=== PATIENT | male | born 1980 | race Caucasian/White ===

== ENCOUNTER 2021-04-09 10:15 | Emergency (ER) | payer SELFPAY ==
[2021-04-09] MEDS ORDERED: Sodium Chloride 0.9% 1,000 ML ONE ×2 (10:30→12:05)
[2021-04-09] MEDS ORDERED: Ondansetron PF 4 MG/2 ML Vial ONE (10:30)
[2021-04-09] MEDS ORDERED: Lorazepam 2 MG/ML VIAL ONE ×2 (10:44→12:04)
[2021-04-09 10:58] LABS: ALT (SGPT) 51 U/L (8-55); AST (SGOT) 104 U/L (5-34); Acetaminophen Less than 6.0 mcg/mL (10.0-30.0); Albumin 4.8 g/dL (3.5-5.0); Alcohol 84 mg/dL (Less than 10); Alkaline Phosphatase 114 U/L (40-110); Anion Gap 23 mmol/L (10-20); BUN (Urea Nitrogen) 13 mg/dL (8.9-20.6); Bilirubin, Total 2.9 mg/dL (0.2-1.2); Calc. Creatinine Clearance 0 mL/min (70-130); Carbon Dioxide 24 mmol/L (22-29); Chloride 94 mmol/L (98-107); Globulin 3.1 g/dL (2.4-3.5); Glucose 102 mg/dL (70-105); Lipase 18 U/L (8-78); Magnesium 1.3 mg/dL (1.6-2.6); Potassium 3.2 mmol/L (3.5-5.1); Protein, Total 7.9 g/dL (6.0-8.3); Salicylate 8.1 mg/dL (15.0-30.0); Sodium 138 mmol/L (136-145)
[2021-04-09 11:00] LABS: #Basophils 0.1 thou/uL (0.0-0.2); #Lymphocytes 1.3 thou/uL (1.20-3.40); #Monocytes 0.5 thou/uL (0.11-0.59); #Neutrophils 5.7 thou/uL (1.40-6.50); %Basophils 0.9 % (0.0-1.0); %Eosinophils 0.2 % (0.0-10.0); %Lymphocytes 17.6 % (21.0-51.0); %Monocytes 6.6 % (0.0-10.0); %Neutrophils 74.8 % (42.0-75.0); Hemoglobin 15.2 g/dL (14.0-18.0); Mean Corpuscular HGB CONC 32.8 g/dL (32.0-36.0); Mean Corpuscular Hemoglobin 31.3 pg (27.0-31.0); Mean Corpuscular Volume 95.5 fL (78.0-98.0); Mean Platelet Volume 9.4 fL (7.4-10.4); Platelet Count 17 thou/uL (130-400); RBC Distribution Width 12.5 % (11.5-14.5); Red Blood Cell (RBC) Count 4.86 mill/uL (4.70-6.10); White Blood Cell (WBC) Count 7.6 thou/uL (4.8-10.8)
[2021-04-09 11:02] LABS: Base Excess-Venous 1.6 mmol/L (-2.0 to 3.0); Bicarbonate (HCO3v) 26.8 mmol/L (22.0-28.0); CO2 Tension (PvCO2) 42.9 mmHg (42.0-51.0); Calcium, Ionized 1.03 mmol/L (1.15-1.33); Chloride 99 mmol/L (98-107); Hemoglobin - Calc 16.5 g/dL (14.0-18.0); Potassium 3.2 mmol/L (3.5-5.1); Sodium 139 mmol/L (138-145); T. Carbon Dioxide 28.1 mmol/L (22.0-28.0); vO2 Saturation-calc 99.5 % (60.0-85.0)
[2021-04-09] MEDS ORDERED: Magnesium 2 GM/50 ML BAG (IN WATER) ONE (11:02)
[2021-04-09 11:04] LABS: Platelet Morphology Comment Appears Decreased
[2021-04-09 11:09] LABS: MDiff Complete? YES; Manual Diff?? NO
[2021-04-09] MEDS ORDERED: Thiamine HCl 200 MG/2 ML VIAL ONE (12:05)
[2021-04-09] MEDS ORDERED: Multivit, Adult Inj 10 ML VIAL ONE (12:05)
[2021-04-09 13:16] LABS: Lactic Acid 2.2 mmol/L (0.5-2.2)
[2021-04-09] MEDS ORDERED: Lorazepam 1 MG TAB ONE (13:42)
[2021-04-09 13:43] LABS: SARS-CoV-2 NAA Rapid Test Not Detected (NotDetected)
[2021-04-09] MEDS ORDERED: Nicotine 7 MG PATCH ONE (15:30)
[2021-04-09] MEDS ORDERED: Diazepam 5 MG TAB ONE (15:56)
[2021-04-09 19:52] LABS: Phencyclidine (PCP) Not Detected (NotDetected); THC/Cannabinoid Screen Detected (NotDetected)
[2021-04-09 19:53] LABS: Amphetamine Detected (NotDetected); Barbiturates Screen Not Detected (NotDetected); Benzodiazepine Screen Detected (NotDetected); Cocaine Metabolite Screen Not Detected (NotDetected); Medtox Control Line Valid? VALID (VALID); Methadone Not Detected (NotDetected); Methamphetamine Detected (NotDetected); Opiate Screen Not Detected (NotDetected); Oxycodone Screen Not Detected (NotDetected); Tricyclic Screen Not Detected (NotDetected)
== END 2021-04-09 20:50 | disposition short-term general hospital (02) ==
LOC: MADERS 10:15
DX: F10.239 Alcohol dependence with withdrawal, unspecified (principal); D69.6 Thrombocytopenia, unspecified; E83.42 Hypomagnesemia; Z20.822 Contact with and (suspected) exposure to COVID-19; F17.210 Nicotine dependence, cigarettes, uncomplicated
CPT/HCPCS: 36415; 80053; 80306; 80307; 82330; 82803; 83605; 83690; 83735; 83880; 85025; 93005; 96365; 96375; 96376; J2060; J2405; J3411; J3475; J7050; U0002

== ENCOUNTER 2022-10-31 09:40 | Emergency (ER) | payer SELFPAY ==
[~2022-10-31 09:40] MED LIST: Iopamidol 370 76% 100 ML VIAL ONE
[2022-10-31] MEDS ORDERED: Morphine 4 MG/ML VIAL ONE (10:54)
[2022-10-31] MEDS ORDERED: Ondansetron PF 4 MG/2 ML Vial ONE (10:54)
[2022-10-31 10:58] LABS: Hematocrit 31.4 % (42.0-52.0); Hemoglobin 10.7 g/dL (14.0-18.0); Mean Corpuscular HGB CONC 34.1 g/dL (32.0-36.0); Mean Corpuscular Hemoglobin 34.4 pg (27.0-31.0); Mean Corpuscular Volume 100.9 fl (78.0-98.0); Platelet Count 71 10x3/uL (130-400); RBC Distribution Width 14.4 % (11.5-14.5); Red Blood Cell (RBC) Count 3.11 mill/uL (4.70-6.10); White Blood Cell (WBC) Count 12.5 10x3/uL (4.8-10.8)
[2022-10-31 11:00] LABS: INR-International Normal Ratio 1.8; Prothrombin Time 21.6 sec (12.0-14.7)
[2022-10-31 11:06] LABS: Anisocytosis SLIGHT = 6-15 cells (100X) (0-5/hpf); Band 2 % (5-11); Lymphocytes 18 % (21-51); MDiff Complete? YES; Manual Diff?? YES; Monocytes 15 % (0-10); Neutrophil 65 % (42-75)
[2022-10-31 11:07] LABS: Platelet Adequacy Comment Appears Decreased
[2022-10-31 11:09] LABS: ALT (SGPT) 42 U/L (8-55); AST (SGOT) 137 U/L (5-34); Albumin 3.4 g/dL (3.5-5.0); Alkaline Phosphatase 166 U/L (40-110); Anion Gap 17 mmol/L (10-20); BUN (Urea Nitrogen) 8 mg/dL (8.9-20.6); Bilirubin, Total 11.7 mg/dL (0.2-1.2); Calc. Creatinine Clearance 0 mL/min (70-130); Calcium 8.5 mg/dL (7.8-10.44); Carbon Dioxide 26 mmol/L (22-29); Chloride 91 mmol/L (98-107); Estimated GFR 119; Globulin 2.9 g/dL (2.4-3.5); Glucose 116 mg/dL (70-105); Potassium 2.9 mmol/L (3.5-5.1); Protein, Total 6.3 g/dL (6.0-8.3); Sodium 131 mmol/L (136-145)
[2022-10-31 14:23] LABS: Amphetamine Not Detected (NotDetected); Barbiturates Screen Not Detected (NotDetected); Benzodiazepine Screen Not Detected (NotDetected); Cocaine Metabolite Screen Not Detected (NotDetected); Methadone Not Detected (NotDetected); Methamphetamine Not Detected (NotDetected); Opiate Screen Detected (NotDetected); Oxycodone Screen Not Detected (NotDetected); Phencyclidine (PCP) Not Detected (NotDetected); THC/Cannabinoid Screen Not Detected (NotDetected); Tricyclic Screen Not Detected (NotDetected)
== END 2022-10-31 16:28 | disposition short-term general hospital (02) ==
LOC: MADERS 09:40
DX: K70.40 Alcoholic hepatic failure without coma (principal); E87.1 Hypo-osmolality and hyponatremia; F17.210 Nicotine dependence, cigarettes, uncomplicated
CPT/HCPCS: 71045; 74177; 80053; 80306; 80307; 85025; 85610; 96374; 96375; J2270; J2405; Q9967

== ENCOUNTER 2022-12-07 18:02 | Emergency (ER) | payer OTHER ==
[2022-12-07 19:00] LABS: #Basophils 0.1 thou/uL (0.0-0.2); #Eosinphils 1.5 thou/uL (0.0-0.7); #Lymphocytes 3.7 thou/uL (1.20-3.40); #Monocytes 1.4 thou/uL (0.11-0.59); #Neutrophils 9.4 thou/uL (1.40-6.50); %Basophils 0.9 % (0.0-1.0); %Eosinophils 9.2 % (0.0-10.0); %Lymphocytes 22.8 % (21.0-51.0); %Monocytes 8.8 % (0.0-10.0); %Neutrophils 58.3 % (42.0-75.0); Hematocrit 39.6 % (42.0-52.0); Hemoglobin 13.2 g/dL (14.0-18.0); Mean Corpuscular HGB CONC 33.2 g/dL (32.0-36.0); Mean Corpuscular Hemoglobin 33.3 pg (27.0-31.0); Mean Corpuscular Volume 100.1 fl (78.0-98.0); Mean Platelet Volume 6.4 fL (7.4-10.4); Platelet Count 134 10x3/uL (130-400); RBC Distribution Width 14.3 % (11.5-14.5); Red Blood Cell (RBC) Count 3.95 mill/uL (4.70-6.10); White Blood Cell (WBC) Count 16.2 10x3/uL (4.8-10.8)
[2022-12-07 19:18] LABS: ALT (SGPT) 36 U/L (8-55); AST (SGOT) 72 U/L (5-34); Alkaline Phosphatase 102 U/L (40-110); Anion Gap 17 mmol/L (10-20); BUN (Urea Nitrogen) 20 mg/dL (8.9-20.6); Calc. Creatinine Clearance 0 mL/min (70-130); Calcium 8.8 mg/dL (7.8-10.44); Carbon Dioxide 23 mmol/L (22-29); Chloride 101 mmol/L (98-107); Estimated GFR 119; Globulin 3.6 g/dL (2.4-3.5); Glucose 104 mg/dL (70-105); Magnesium 1.9 mg/dL (1.6-2.6); Protein, Total 6.6 g/dL (6.0-8.3); Sodium 137 mmol/L (136-145)
[2022-12-07] MEDS ORDERED: Lidocaine 1% (PF) 30 ML VIAL ONE (19:47)
[2022-12-07 20:15] LABS: CK (CPK) Less than 18 U/L (30-200)
[2022-12-07] MEDS ORDERED: cefTRIAXone (ROCEPHIN) 2 GM VIAL ONE (20:22)
[2022-12-07] MEDS ORDERED: Sodium Chloride 0.9% 100 ML ONE (20:22)
[2022-12-07] MEDS ORDERED: Morphine 4 MG/ML VIAL ONE (20:22)
[2022-12-07] MEDS ORDERED: Albumin 25% 100 ML ONE (20:34)
[2022-12-07 23:21] LABS: RBC Count-Automated (BF) 12084 /cu.mm; WBC/Nucleated-Auto (BF) 186 /cu.mm
[2022-12-07 23:31] LABS: INR-International Normal Ratio 1.7; Prothrombin Time 20.2 sec (12.0-14.7)
[2022-12-07 23:32] LABS: PTT 55.8 sec (22.9-36.1)
[2022-12-07 23:51] LABS: BF Color Yellow; Body Fluid Source Peritoneal Fluid; Clarity Hazy (Clear); Tube # 2
[2022-12-07 23:53] LABS: BF Segmented Neutrophils 70 %; Cell Count Non Hematic 19 %; Lymphocytes 11 %
== END 2022-12-07 22:38 | disposition short-term general hospital (02) ==
LOC: MADERS 18:02
DX: K76.82 Hepatic encephalopathy (principal); A41.9 Sepsis, unspecified organism; F17.210 Nicotine dependence, cigarettes, uncomplicated
CPT/HCPCS: 36415; 49083; 71045; 80053; 82140; 82550; 82945; 83605; 83735; 84157; 84443; 85025; 85060; 85610; 85730; 87040; 87070; 87205; 89051; 93005; 96365; 96367; 96372; 96375; J0696; J2001; J2270; J3490; P9047